=== PATIENT | female | born 1935 | race Caucasian/White ===

== ENCOUNTER 2016-07-31 11:49 | Inpatient (IN) | payer OTHER ==
[~2016-07-31] VITALS: Ht 167.6 cm; Wt 58.1 kg
--- NOTE | 2016-07-31 11:50 | NUR ---
Placed in room 07. Placed on youth nutritional monitor, blood pressure machine and pulse oximeter. To gown for exam. Side rails up. Report given to PREMA Beckman.
--- NOTE | 2016-07-31 11:52 | NUR ---
Dr. Aguilar at bedside for evaluation
[2016-07-31 11:59] VITALS: BP 160/82; PULSE 89; RESP 16; TEMP 97.1; O2SAT 96
[2016-07-31] MEDS ORDERED: NS 500 ML IV SCH (12:00)
--- NOTE | 2016-07-31 12:00 | NUR ---
pt. to the ER AAOx4 sent by her primary care for irregular HR. As per pt. she was at her PCP appointment todat at 1015 for pain that started in her right breat and radiated towards her right upper back, stated that she had mastectomy done in 2006, never experienced pain like this in her breast area so decided to go see her Dr. Doctor ran and EKG three times and found that pt. had irregular heart beat. Pt. denies SOB, denies N/V denies Headache, states that there is no pain at this time, on campus monitor
[2016-07-31] MEDS ORDERED: OXYB5TAB11 PO (12:49)
[2016-07-31] MEDS ORDERED: CILO50TA PO (12:49)
[2016-07-31] MEDS ORDERED: FLUT16SP16 NS (12:49)
[2016-07-31] MEDS ORDERED: SOD85CRE TP (12:49)
[2016-07-31] MEDS ORDERED: GLIP10TA74 PO (12:49)
[2016-07-31] MEDS ORDERED: OMEG-95 PO (12:49)
[2016-07-31] MEDS ORDERED: GLIP5TAB13 PO (12:49)
[2016-07-31] MEDS ORDERED: TRAZ-126 PO (12:49)
[2016-07-31] MEDS ORDERED: LOSA25TA3 PO (12:49)
[2016-07-31] MEDS ORDERED: ARI1 PO (12:49)
[2016-07-31] MEDS ORDERED: GLU500 PO (12:49)
--- NOTE | 2016-07-31 12:49 | NUR ---
Medication reconciliation completed with information provided by PMD. Any prior medication reconciliation on file was reviewed and corrected.
[2016-07-31 13:03] LABS: BASOPHILS % (AUTO) 0.7 % (0.0-2.0); EOSINOPHILS # (AUTO) 0.1 K/uL (0.0-0.4); EOSINOPHILS % (AUTO) 1.1 % (0.0-4.0); HEMATOCRIT 38.8 % (36-48); HEMOGLOBIN 13.2 g/dL (12.0-16.0); LYMPHOCYTES # (AUTO) 1.5 K/uL (1.0-5.5); LYMPHOCYTES % (AUTO) 25.6 % (20.5-51.5); MEAN CORPUSCULAR HEMOGLOBIN 31 pg (27-31); MEAN CORPUSCULAR HGB CONC 34 % (32-36); MEAN CORPUSCULAR VOLUME 90 fL (79.0-98.0); MONOCYTES # (AUTO) 0.6 K/uL (0.0-1.0); MONOCYTES % (AUTO) 10.7 % (1.7-9.3); NEUTROPHILS # (AUTO) 3.8 K/uL (1.8-7.7); NEUTROPHILS % (AUTO) 61.9 % (40.0-70.0); PLATELET COUNT (AUTO) 213 K/uL (130-430); RED BLOOD CELL COUNT(AUTO) 4.33 MIL/uL (4.2-6.2); RED CELL DISTRIBUTION WIDTH 12.8 % (9.0-15.0)
[2016-07-31 13:14] LABS: PROTHROMBIN TIME 10.8 SECS (9.5-12.5)
[2016-07-31 13:20] LABS: ALANINE AMINOTRANSFERASE 17 U/L (12-78); ALBUMIN 3.3 g/dL (3.4-4.8); ANION GAP 6 (5-15); ASPARTATE AMINOTRANSFERASE 14 U/L (10-37); CALCIUM 9.3 mg/dL (8.4-11.0); CHLORIDE 103 mmol/L (98-107); CREATININE 0.67 mg/dL (0.55-1.30); GLUCOSE 183 mg/dL (70-99); POTASSIUM 3.9 mmol/L (3.5-5.1); SODIUM SERUM 138 mmol/L (136-145); TOTAL BILIRUBIN 0.3 mg/dL (0.0-1.0); TOTAL PROTEIN, SERUM 7.1 g/dL (6.4-8.3); UREA NITROGEN, BLOOD 20 mg/dL (8-21)
[2016-07-31 13:39] LABS: BILIRUBIN,URINE NEGATIVE (NEGATIVE); CLARITY/URINE CLEAR (CLEAR); COLOR,URINE YELLOW (YELLOW); GLUCOSE,URINE NEGATIVE (NEGATIVE); KETONES,URINE NEGATIVE (NEGATIVE); LEUKOCYTE ESTERASE ,URINE TRACE (NEGATIVE); NITRITE, URINE NEGATIVE (NEGATIVE); PH,URINE 6.5 (5.0-8.0); PROTEIN URINE NEGATIVE (NEGATIVE); UROBILINOGEN,URINE 0.2 (0.2-1.0)
[2016-07-31 13:42] LABS: BLOOD, URINE TRACE (NEGATIVE)
[2016-07-31 13:48] LABS: RBC,URINE 0-3 /HPF (0-3); WBC,URINE 0-3 /HPF (0-3)
[2016-07-31 13:49] LABS: BACTERIA,URINE FEW /HPF (None Seen); MUCUS,URINE None Seen /LPF (None Seen)
--- NOTE | 2016-07-31 14:05 | NUR ---
pt. resting, vitals stable, pulses WNL, states no pain and no discomfort of lungs and heart
--- NOTE | 2016-07-31 16:08 | NUR ---
Patient will be admitted to care of DR. MENDIETA. Admitted to TELE unit. Will go to room 135. Summary report printed. Report given to CHARGE NURSE.
--- NOTE | 2016-07-31 16:20 | NUR ---
ADMISSION NOTE Received patient from ER via elvi, received report from RENATE LLOYD. Patient admitted with diagnosis of NEW ONSET OF ATRIAL FIBRILLATION. Patient oriented to hospital routine, call light, toileting and safety-patient verbalized understanding.
[2016-07-31 16:28] VITALS: BP 111/68; PULSE 84; RESP 18; TEMP 99; O2SAT 96
--- NOTE | 2016-07-31 16:30 | NUR ---
CONSULTATION PAGED REASON FOR CONSULTATION:A-FIB WAS CONSULT CALLED?Y PERSON WHO WAS NOTIFIED:OTTO CONSULTING PHYSICIAN:EDA HOU ACREAGE REPORTER SPECIALTY:FOOD AND BEVERAGE ASSISTANT PHONE NUMBER:[phone]
--- NOTE | 2016-07-31 17:00 | NUR ---
INITIAL ASSESSMENT: RECEIVED PATIENT IN ROOM 108C. AWAKE ,ALERT AND ORIENTED X4. IV SALINE LOCK AT LEFT AC INTACT. DENIES ANY CHEST PAIN. ON DIRECTOR OF GROUP COUNSELING PROGRAM,SR. INITIAL ASSESSMENT DONE.COMFY THIS TIME.
--- NOTE | 2016-07-31 18:11 | NUR ---
rounds: patient having dinner. sitting on the bed,boyfriend at bedside.
--- NOTE | 2016-07-31 18:45 | NUR ---
closing notes: stable. spoke with dr calhoun and said he is is going to put the order for accucheck in the computer. denies any chest pain. sinus rhythm in the monitor.
[2016-07-31] MEDS ORDERED: DEXTROSE 50% JECT 50 ML DISP.SYRIN IVP PRN (19:00)
[2016-07-31] MEDS ORDERED: INSULIN REGULAR, HUMAN 100 UNITS/ML, 10 ML VIAL (novoLIN R) SUBCUT PRN (19:00)
[2016-07-31 19:50] VITALS: BP 158/70; PULSE 66; RESP 18; TEMP 98; O2SAT 97
--- NOTE | 2016-07-31 20:00 | NUR ---
NOTES; SAIMA PT IN BED, WATCHING TV. A/A/O X4. NO CARDIOPULMONARY DISTRESS OR SOB NOTED. VITAL SIGNS STABLE, AFEBRILE. IV SALINE LOCK TO THE LEFT AC GAUGE 20, PATENT. NO SIGNS OF INFECTION NOTED ON IV SITE. C/O HEART BURN. MD TO BE NOTIFIED FOR ORDERS. PT DENIES ANY PAIN AT THIS TIME. EDUCATED PT ON THE USE OF CALL LIGHT TO CALL FOR ANY NEED TO ASSIST. PT VERBALIZED AND DEMONSTRATED UNDERSTANDING. BED LOCKED AND IN LOW POSITION. SIDE RAILS UP X3. BED ALARM ON, CALL LIGHT IN PT HAND. WILL CONTINUE TO MONITOR. FALL PRECAUTION AND SAFETY MEASURES IN PROGRESS. WILL CONTINUE TO MONITOR.
--- NOTE | 2016-07-31 20:33 | NUR ---
NOTES; BLOOD SUGAR FOUND TO BE 194. PT IS REFUSING ORDERED INSULIN SLIDING SCALE. DR MENDIETA PAGED TO BE NOTIFIED.
--- NOTE | 2016-07-31 20:36 | NUR ---
paged for Dr Goetz, . s/w Del.
--- NOTE | 2016-07-31 20:50 | NUR ---
NOTES; DR MENDIETA CALLED AND INFORMED ABOUT PT C/O HEART BURN. DR MENDIETA INFORMED ABOUT PT PREFERENCE OF ZANTAC. ORDERED RECEIVED OR ZANTAC 150MG BID. Addendum: 07/31/16 at 2115 by Carey Gutierrez LVN DR MENDIETA ALSO NOTIFIED THAT PT IS REFUSING INSULIN SLIDING SCALE FOR BLOOD SUGAR 194, AND REFUSAL OF ACCU CHECK AT MIDNIGHT.
--- NOTE | 2016-07-31 21:04 | NUR ---
paged for Dr Goetz, . s/w Rk.
--- NOTE | 2016-07-31 21:11 | NUR ---
NOTES; ZANTAC IS NOT HOSPITAL FORMULARY MEDICATION. DR MENDIETA CALLED AND INFORMED. NEW ORDERS RECEIVED.
[2016-07-31] MEDS: OXYBUTYNIN CHLORIDE 5 MG TABLET PO SCH (21:55)
[2016-07-31] MEDS: CILOSTAZOL 50 MG TABLET (PLETAL) PO SCH (21:56)
[2016-07-31] MEDS: FAMOTIDINE 20 MG TABLET PO SCH (21:56)
--- NOTE | 2016-07-31 23:32 | NUR ---
2D ECHO: NOTIFIED VIA [facility]
--- NOTE | 2016-08-01 | NUR ---
NOTES; PT REFUSED FINGER STICK AT THIS TIME. MADE AWARE.
--- NOTE | 2016-08-01 02:00 | NUR ---
NOTES; ASSISTED TO THE BATHROOM, GAIT STEADY. ASSISTED BACK TO BED. DENIES ANY PAIN AT THIS TIME. SAFETY MEASURES IN PROGRESS.
--- NOTE | 2016-08-01 04:15 | NUR ---
NOTES; APPEARED TO BE SLEEPING, EYES CLOSED. EASILY AROUSED. RESPIRATION EVEN AND UNLABORED. SAFETY MEASURES IN PROGRESS.
--- NOTE | 2016-08-01 06:38 | NUR ---
NOTES; RESTING QUIETLY, EASILY AROUSED. NO APPARENT DISTRESS NOTED. BLOOD SUGAR FOUND TO BE 148. ALL NEEDS ATTENDED. SAFETY MEASURES IN PROGRESS.
--- NOTE | 2016-08-01 07:45 | NUR ---
DR MENDIETA AT BEDSIDE
--- NOTE | 2016-08-01 08:00 | NUR ---
INITIAL NOTE PT LYING IN BED, AWAKE, IN GOOD SPIRITS, VSS, NO COMPLAINT OF PAIN OR S/S OF DISTRESS, IV SITE TO LAC SL, PATENT, NO S/S OF INFILTRATION, PATIENT ASSISTED TO RESTROOM, SAFETY MEASURES IN PLACE, BED ALARM ON, PATIENT REMINDED TO USE CALL LIGHT AND IT IS PLACED WITHIN REACH, WILL FOLLOW UP.
[2016-08-01] MEDS: metFORMIN HCL 500 MG TABLET PO SCH ×2 (08:12→17:48)
[2016-08-01] MEDS: CILOSTAZOL 50 MG TABLET (PLETAL) PO SCH (08:13)
[2016-08-01] MEDS: OXYBUTYNIN CHLORIDE 5 MG TABLET PO SCH (08:13)
[2016-08-01] MEDS: traZODone HCL 50 MG TABLET (DESYREL) PO SCH ×2 (08:13→08:34)
[2016-08-01] MEDS: FLUTICASONE PROPIONATE 50 mCg/SPRAY 16 GM NS SCH ×2 (08:14→08:35)
[2016-08-01 08:21] VITALS: BP 142/76; PULSE 63; RESP 17; TEMP 97.8; O2SAT 95
--- NOTE | 2016-08-01 08:30 | NUR ---
PATIENT REFUSED TRAZODONE PO MEDICATION, STATES SHE DOES NOT TAKE MEDICATION IN AM BUT RATHER AT NIGHT BEFORE SLEEPING. PT ALSO REFUSED PEPCID AND FLONASE NASAL SPRAY, STATING SHE DID NOT NEED IT RIGHT NOW.
[2016-08-01 09:00] LABS: CHOLESTEROL 137 mg/dL (<200); HDL CHOLESTEROL 58 mg/dL (>55); LDL CHOLESTEROL 65 mg/dL (<100); TRIGLYCERIDES 90 mg/dL (30-150)
[2016-08-01] MEDS: FAMOTIDINE 20 MG TABLET PO SCH (09:00)
[2016-08-01] MEDS ORDERED: ANASTROZOLE 1 MG TABLET (ARIMIDEX) PO SCH (09:00)
[2016-08-01] MEDS ORDERED: LOSARTAN POTASSIUM 25 MG TABLET PO SCH (09:00)
--- NOTE | 2016-08-01 10:30 | NUR ---
DR FORD PAGED TO REPORT 2D ECHO RESULTS AND D-DIMER RESULTS OF 747
--- NOTE | 2016-08-01 10:52 | NUR ---
CALLED ATTENDING MD DR MENDIETA RE: D DIMER RESULT. SPOKE TO ALFONSO
--- NOTE | 2016-08-01 10:56 | NUR ---
DR FORD CALLED BACK, REPORTED RESULTS, HE STATED HE WOULD BE IN TO SEE THE PATIENT SOON AND THAT D-DIMER RESULT SHOULD BE REPORTED TO THE PRIMARY MD, DR MENDIETA.
--- NOTE | 2016-08-01 10:58 | NUR ---
DR GAYATRI KULKARNI TO REPORT D-DIMER RESULTS
[2016-08-01 12:00] VITALS: BP 130/62; PULSE 63; RESP 17; TEMP 97.2; O2SAT 95
--- NOTE | 2016-08-01 12:05 | NUR ---
DR MENDIETA RETURNED PAGE REPORTED RESULTS TO D-DIMER, RECEIVED NEW ORDERS FOR BILATERAL VENOUS DOPPLER ULTRASOUND OF LOWER EXTREMITIES. ORDER PLACED. PT AWARE OF RESULTS AND EXAM.
--- NOTE | 2016-08-01 14:30 | NUR ---
ROUNDS PT LYING IN BED, FAMILY AT BEDSIDE, NO S/S OF DISTRESS OR COMPLAINT OF PAIN, FEELING RESTLESS, STATED SHE IS READY TO GO HOME, EXPLAINED THAT WE ARE WAITING FOR THE CONSULT OF DR FORD, HE WILL MAKE ROUNDS TODAY PER OUR PHONE CONVERSATION THIS MORNING. PT VERBALIZED UNDERSTANDING. STATES SHE HAS NO NEEDS AT THIS TIME, REMINDED TO PELASE US E CALL LIGHT FOR ANY ASSISTANCE AND IT IS PLACED WITHIN REACH, SAFETY MEASURES IN PLACE, BED IN LOW POSITION, WILL FOLLOW UP.
[2016-08-01 15:43] VITALS: BP_SYST 137; BP_SYST 140; BP_DIAS 71; BP_DIAS 99; PULSE 62; PULSE 86; RESP 17; TEMP 96.7; TEMP 98.4; O2SAT 96
[2016-08-01 16:03] VITALS: BP 137/71; PULSE 62; RESP 17; TEMP 96.7; O2SAT 96
--- NOTE | 2016-08-01 16:58 | NUR ---
CALLED COOLER MAN, DR FORD RE: HIS TIME TO SEE AND CLEAR PT FOR HOME. SPOKE TO MIKE
--- NOTE | 2016-08-01 17:15 | NUR ---
DR FORD AT BEDSIDE
--- NOTE | 2016-08-01 17:30 | NUR ---
DR GAYATRI KULKARNI PER DR FORD REQUEST.
[2016-08-01] MEDS ORDERED: METO25TA3 PO (18:04)
[2016-08-01] MEDS ORDERED: FLEC50TA2 PO (18:04)
[2016-08-01] MEDS ORDERED: RIVA20TA PO (18:04)
--- NOTE | 2016-08-01 18:36 | NUR ---
D/C Patient Patient given medication reconciliation form and D/C instructions. Exit Care provided. Patient verbalized understanding. MD discussed with patient the results and treatment provided. Ambulatory with steady gait for discharge to home. Patient escorted out via wheelchair by PREMA Travis, and family member. Patient in stable condition, ID band removed. IV catheter removed, intact and dressing applied, no active bleeding. Rx of Flecainide Acetate, Metoprolol, and Xarelto given. Patient educated on pain management. All belongings sent with patient.
--- NOTE | 2016-08-03 15:45 | NUR ---
Discharge Follow Up Phone Call: CABLE INSTALLER called and spoke with pt ([phone]). Pt states that she is doing well; pt has filled one prescription, pt is picking up another prescription today, and pt is waiting on insurance approval to get her Xarelto prescription filled; there are no questions regarding discharge or medication instructions; pt has follow up appointments scheduled with PCP, Dr. El, and pt's [employer]; pt checks her blood sugar as directed by PCP. Pt did not express any other needs or concerns and denied the need for additional follow up at this time. No further follow up phone calls required at this time.
== END 2016-08-01 18:35 | disposition home or self-care (01) | DRG 309 ==
LOC: SED 11:49 → STU 16:01
PROVIDERS: ADMIT Internal Medicine Hospice and Palliative Medicine; ATTEND Internal Medicine Hospice and Palliative Medicine
DX: I48.0 Paroxysmal atrial fibrillation (principal); D68.69 Other thrombophilia; I10 Essential (primary) hypertension; F17.200 Nicotine dependence, unspecified, uncomplicated; J44.9 Chronic obstructive pulmonary disease, unspecified; E11.51 Type 2 diabetes mellitus with diabetic peripheral angiopathy without gangrene; E11.65 Type 2 diabetes mellitus with hyperglycemia; Z79.01 Long term (current) use of anticoagulants; Z82.3 Family history of stroke; Z88.0 Allergy status to penicillin; Z85.3 Personal history of malignant neoplasm of breast; Z90.10 Acquired absence of unspecified breast and nipple; Z88.1 Allergy status to other antibiotic agents; Z79.899 Other long term (current) drug therapy
CPT/HCPCS: 36415; 71010; 80053; 80061; 81000-TC; 82962; 83605; 84443-TC; 84484; 85025; 85379; 85610-TC; 85730-TC; 87040-TC; 93005; 93306; 93970; 96360; 99285; J1815; J7040